=== PATIENT | male | born 1945 | race Caucasian/White ===

== ENCOUNTER → 2017-09-07 | Day surgery (SDC) | payer MEDICARE ==
[~2017-09-07] VITALS: Ht 167.6 cm; Wt 93.0 kg
[~2017-09-07] MED LIST: CEFAZOLIN SOD 1 GM VIAL PRN; FENTANYL CITRATE/PF 100MCG/2 ML INJ PRN; LIDOCAINE 1% W/EPINEPHRINE 20 ML VIAL PRN; MIDAZOLAM HCL 2 MG/2 ML VIAL PRN; SODIUM CHLORIDE 0.9% 500ML 500 ML PRN; SODIUM CHLORIDE 0.9% 50ML 50 ML PRN
[2017-09-07 06:57] VITALS: BP 161/82
--- NOTE | 2017-09-07 08:30 | Operative Report ---
DATE OF PROCEDURE: September 07, 2017 PROCEDURES PERFORMED: Implantable loop recorder. INDICATIONS: CVA, rule out arrhythmias. BLOOD LOSS: None. ANESTHESIA: Two percent lidocaine with epinephrine. DESCRIPTION OF PROCEDURE: After informed consent, the patient was brought to the cardiac catheterization laboratory and placed on the table. His left chest was painted and draped in a sterile fashion. Lidocaine injected in the left chest for local anesthesia. An incision was made with the enclosed blade. The plunger was introduced through the incision into the subcutaneous tissue. The implantable loop recorder was deployed into the subcutaneous fascia. The incision was closed using 2-0 silk. The wound was dressed and cleaned in a sterile fashion. Patient received Ancef during the procedure. Patient tolerated the procedure without any complications. Job#: [id number] FLORES
[2017-09-07 10:25] VITALS: BP 173/83
== END | disposition home or self-care (01) ==
LOC: CATH LAB 06:14
DX: I63.8 Other cerebral infarction (principal); I10 Essential (primary) hypertension; E11.9 Type 2 diabetes mellitus without complications
CPT/HCPCS: 33282; C1764; J0690; J2250; J7040